=== PATIENT | female | born 1975 | race Caucasian/White ===

== ENCOUNTER 2023-07-20 08:50 | Emergency (ER) | payer BC ==
[2023-07-20 09:07] VITALS: BP 160/108; PULSE 84; RESP 18; TEMP 97.9; BMI 32.4
== END 2023-07-20 09:42 | disposition home or self-care (01) ==
LOC: FER 08:50
DX: H92.02 Otalgia, left ear (principal); M54.2 Cervicalgia; J01.00 Acute maxillary sinusitis, unspecified
CPT/HCPCS: 99283-25